=== PATIENT | male | born 1980 | race Caucasian/White ===

== ENCOUNTER 2021-04-07 14:53 | Outpatient (CLI) | payer MEDICAID, SELFPAY ==
--- NOTE | 2021-04-07 14:45 | RT.EKG_ITS ---
APPROVED REPORT Exam: Resting ECG Reason for Exam: chest pain Patient Location: O HR:62 bpm ECG Measurements Heart Rate 62 AXIS OH 144 P 61 QRSd 88 QRS 39 QT 378 T 63 QTc 384 Conclusion Sinus rhythm...normal P axis, V-rate 60- 99 ST elev, probable normal early repol pattern...ST elevation, age<55 Normal Electrocardiogram
== END 2021-04-07 14:54 | disposition home or self-care (01) ==
PROVIDERS: PCP Family Medicine; Visit Provider Family Medicine
DX: R07.9 Chest pain, unspecified (principal)
CPT/HCPCS: 93010

== ENCOUNTER 2021-04-07 18:50 | Outpatient (REF) | payer MEDICAID, SELFPAY ==
[2021-04-07 19:06] LABS: HCT 42.7 % (40.0-50.0); HGB 14.3 g/dL (13.5-17.5); MCH 31.8 pg (27.0-33.0); MCHC 33.5 % (32.0-36.0); MCV 95.1 fL (80-95); MPV 9.5 fL (8.0-11.0); Platelet Count 349 10^3/uL (130-400); RBC 4.49 10^6/uL (4.36-5.78); RDW 12.8 % (11.8-14.1); RDW-SD 44.1 fL
[2021-04-07 19:34] LABS: ALT 55 U/L (16-63); AST 16 U/L (15-37); Albumin 4.3 g/dL (3.4-5.0); Alkaline Phosphatase 39 U/L (46-116); Anion Gap 9.1 mmol/L (3-11); BUN 20 mg/dL (7-18); Bilirubin, Total 0.3 mg/dL (0.2-1.0); CO2 27.9 mmol/L (21.0-32.0); CREATININE 1.3 mg/dL (0.70-1.30); Calcium 9.3 mg/dL (8.5-10.1); Calculated LDL 111 mg/dL (<100); Chloride 101 mmol/L (98-107); Cholesterol 202 mg/dL (<200); Glucose 77 mg/dL (74-106); HDL Cholesterol 82 mg/dL (40-60); Sodium 138 mmol/L (136-145); TSH (W/Ref FT4) 1.03 uIU/mL (0.36-3.74); Total Protein 7.6 g/dL (6.4-8.2); Triglyceride 48 mg/dL (<150)
[2021-04-09 10:55] LABS: Syphilis Serology (RPR) Negative (Negative)
[2021-04-09 12:05] LABS: Hepatitis C Ab w Rflx HCV PCR Negative (Negative)
[2021-04-09 12:12] LABS: HIV-1/2 Ag & Ab Screen Negative (Negative)
[2021-04-09 14:57] LABS: Hepatitis B Surface Ag Negative (Negative)
[2021-04-09 15:24] LABS: GC Result Negative (Negative)
[2021-04-09 15:34] LABS: Chlamydia Result Positive (Negative)
== END 2021-04-07 18:51 | disposition home or self-care (01) ==
LOC: LBN 18:50
PROVIDERS: PCP Family Medicine; Visit Provider Family Medicine
DX: I10 Essential (primary) hypertension (principal); R07.9 Chest pain, unspecified; R53.83 Other fatigue; Z11.3 Encounter for screening for infections with a predominantly sexual mode of transmission; Z11.4 Encounter for screening for human immunodeficiency virus [HIV]; Z11.59 Encounter for screening for other viral diseases
CPT/HCPCS: 80053; 80061; 85027; 86803; 87340; 87389; 87491; 87591; 84443; 86592

== ENCOUNTER 2021-04-13 00:07 | Outpatient (CLI) | payer MEDICAID, SELFPAY ==
--- NOTE | 2021-04-13 08:00 | ETT_ITS ---
APPROVED REPORT Exam: Exercise Treadmill Patient Location: Out-Patient Room/Bed: Stress Nurse: Deidre Bryant RN Ordering Provider:ROSI SORTO, Contact Number: [phone] BMI: 21.52 Baseline Rhythm: Sinus Rhythm Comment: Diffuse ST elevations Indications: Chest pain Medical History Medical History: Hypertension, hyperlipidemia, heroine use 2016 Cardiac Medications: Lisinopril, amlodipine Allergies: NKA Cardiac Risk Factors: Hypertension, hyperlipidemia, smoker (former) Previous Cardiac Procedures: None Pretest Chest Pain Characteristics: None Exercise History: Indeterminate Physical Disabilities: None Lung Sounds: Clear to auscultation Heart Sounds: Regular Stress Test Details Test: , Exercise stress testing was performed using a Dorian protocol. Rest Stress HR Resting HR Supine: 65 bpm Max Heart Rate (APMHR): 178 bpm Resting HR Standin bpm Target HR (85% APMHR): 151 bpm Max HR Achieved: 169 bpm % of APMHR: 94 Recovery HR: 99 bpm HR response to stress: Normal HR response to stress BP Resting BP Supine: 138/78 mmHg Resting BP Standin/80 mmHg Max BP: 178/80 mmHg Recovery BP: 124/64 mmHg BP response to stress: Normal blood pressure response to stress. ECG Resting ECG: Sinus Rhythm Ectopy: None Comment: Diffuse ST elevations Stress ECG: Sinus Tachycardia ST Change: No significant ST segment changes noted Arrhythmia: Rare PVCs and couplet towards end of exercise Recovery ECG: Sinus Rhythm Recovery ST Change: No significant ST segment changes noted Recovery Arrhythmia: None Clinical Reason for Termination: Fatigue Stress Symptoms: General Fatigue, Chest pain, Dyspnea Exercise duration: 14 min47 sec Highest Stage Reached: Stage 5: 5.0 mph at 18% grade. Exercise capacity: 14.86 METs Rodriguez Treadmill Score: 9.7 Rate Pressure Product: [id number] Stress ECG Conclusion 1. Resting electrocardiogram was within normal limits 2. Patient exercised on the Dorian protocol and completed a workload of 14.86 METS 3. Normal heart rate and blood pressure response to exercise. The patient achieved 94% of predicted heart rate for age 4. Electrocardiographically there was no evidence of myocardial ischemia 5. Rare PVCs were noted Rodriguez Treadmill Score is 9.7 which is Low risk. Stress Test Summary STAGE Time (mins) Speed (mph) Grade (%) HR BP SYMPTOMS METS Supine 65 138/78 Standing 75 138/80 SpO2 97% 1 3 1.7 10 102 140/82 Mild SOB, SpO2 97% 4.6 2 6 2.5 12 119 152/82 SpO2 96% 7 3 9 3.4 14 130 154/82 SpO2 95% 10.2 4 12 4.2 16 156 162/86 SpO2 94% 12.9 5 15 5.0 18 169 Chest tightness 4/10, Moderate SOB, SpO2 94% 17.2 1 min recovery 146 166/84 Chest tightness resolved, SOB mild, SpO2 95% 3 min recovery 120 178/80 SOB resolved, SpO2 95% 6 min recovery 104 134/64 SpO2 95% 9 min recovery 99 124/64 SpO2 96% During last stage of exercise, pt reported feeling 4/10 chest tightness w/ moderate SOB. Stated chest tightness resolved immediately w/ cesssation of exercise. SOB resolved by minute 6 of recovery.
== END 2021-04-13 00:27 ==
PROVIDERS: PCP Family Medicine; Visit Provider Family Medicine
DX: R07.9 Chest pain, unspecified (principal); I10 Essential (primary) hypertension; E78.5 Hyperlipidemia, unspecified; Z87.891 Personal history of nicotine dependence
CPT/HCPCS: 93017

== ENCOUNTER 2021-05-21 13:48 | Outpatient (CLI) | payer MEDICAID, SELFPAY ==
--- NOTE | 2021-05-21 13:45 | RT.EKG_ITS ---
APPROVED REPORT Exam: Resting ECG Reason for Exam: chest pain Patient Location: O HR:84 bpm ECG Measurements Heart Rate 84 AXIS MA 142 P 67 QRSd 87 QRS 36 QT 353 T 61 QTc 418 Conclusion Sinus rhythm...normal P axis, V-rate 50- 99 Normal Electrocardiogram
== END 2021-05-21 13:49 | disposition home or self-care (01) ==
LOC: DI.CARD 13:49
PROVIDERS: PCP Family Medicine; Visit Provider Internal Medicine Cardiovascular Disease
DX: R07.89 Other chest pain (principal)
CPT/HCPCS: 93010

== ENCOUNTER 2021-09-29 12:51 | Day surgery (SDC) | payer MEDICAID, SELFPAY ==
--- NOTE | 2021-09-29 07:08 | W.COLOREPORT ---
Colonoscopy Report Date of procedure: 09/29/21 Pre-op diagnosis general: Rectal bleeding Post-op diagnosis procedure note: other (internal hemorrhoids and mild diverticulosis) Procedure: Colonoscopy Internal hemorrhoid banding Surgeon: Tere Juarez Anesthesia Type: General:No Airway Estimated blood loss (mL): 2 Pathology: none sent Complications: None Disposition: same day Indications: Mr. Sousa is a pleasant 41-year-old gentleman with over a year of intermittent rectal bleeding which sometimes can be quite a bit.? He denies any nausea, vomiting, abdominal pain, melena, dyspepsia.? He has no family history of colon cancer that he is aware of.? He has not lost any weight.? Differential includes internal hemorrhoids, polyps, diverticulosis or mass.? He is close to the age where we would start doing colonoscopies anyway and with his change in bowel habits and his intermittent bleeding I did recommend going ahead with a colonoscopy.? We reviewed the colonoscopy procedure as well as the risks and benefits.? We also went over the prep in detail. Risks, benefits and complications have been reviewed. Complications include but are not limited to bleeding, pain, perforation, missed small lesion/polyp, sore throat, aspiration and adverse reaction to the medications. Questions were entertained and answered to their satisfaction and they wished to proceed. No guarantees were given or implied. Proceed with colonoscopy under sedation Prep: Miralax/Dulcolax Retraction Time: >6 minutes Procedure Description: After informed consent was obtained the patient was taken to the procedure room and placed in a left decubitous position. Monitors were applied and a time out was done. The patients name, date of , procedure, allergies to medications and metal in their body was reviewed. The patient was then sedated. Once sedated and comfortable a rectal exam was done. External exam was normal. Internal exam revealed a normal sphincter tone and no palpable masses. The prostate felt normal. The scope was then introduced and retro-flexed. Grade 2 internal hemorrhoids were identified on retro-flexion. No polyps or masses were identified on retro-flexion. The scope was then advanced to the cecum without difficulty. The ileocecal vlave and appendiceal orifice were identified. The prep was adequate. The scope was then slowly retracted over >6 minutes back into the rectum. There were no polyps. There was mild sigmoid diverticulosis noted. The scope was removed. A lighted anoscope was then inserted gently and using a head loft worker with suction 3 Grade 2 internal hemorhroids were banded. The patient was woken up and taken back to Same day surgery in stable condition. The patient tolerated the procedure well and there were no immediate complications. Follow up: The patient should follow up in 10 years unless they develop changes in bowel habits or other new gastrointestinal complaints.
--- NOTE | 2021-09-29 07:09 | W.PM.DSUDISC ---
Discharge Plan Disposition Patient Disposition: HOME Condition: Good Discharge Details Reason For Visit: Colonoscopy Attending Provider: Tere Juarez Primary Care Provider: Mike Cross Home Meds and New Rx's Prescriptions: Continued lisinopril 20 mg tablet 20 mg PO DAILY Qty: 90 3RF Discontinued bisacodyl [Dulcolax (bisacodyl)] 5 mg tablet,delayed release (DR/EC) 5 mg PO ONCE Qty: 4 0RF Rx Instructions: Take according to provider's instructions for colonoscopy prep. polyethylene glycol 3350 17 gram/dose powder 17 g PO ONCE Qty: 238 0RF Label Comments: Pt states half inch left in the bottle, didn't quite make it.HE Rx Instructions: To be taken as directed by prescriber's office for colonoscopy prep. Discharge Instructions Instructions: Diverticulosis (DC), Hemorrhoids (DC), Rubber Band Ligation (DC) Additional Instructions: Findings: mild diverticulosis internal hemorrhoids Follow up: 10 years Please call if you develop: fevers >101.5 Nausea or Vomiting Abdominal pain that is not transient Rectal bleeding that is more then a tbsp A hard abdomen and inability to pass gas DAY SURGERY UNIT POST ENDOSCOPY INSTRUCTIONS Instructions for everyone who is given Anesthesia: For your safety, please do the following for the next 24 Hours: a. Do not drive or operate dangerous equipment b. Do not drink alcohol beverages or use any recreational drugs for the first 24 hours or while taking pain medications. The medications in your body may have a reaction that can be dangerous. c. Do not make any important decisions or sign any important papers 1. Generally there are no restrictions on your activity after a day or so has gone by, but you may feel a bit fatigued for a few days. 2. After you arrive home you may have a light meal and return to a normal diet as you can tolerate it without feeling sick to your stomach. 3. After surgery, you may feel pain or discomfort. This should be only transient, but if it persists please contact your doctor. 4. If there are any questions regarding the findings of your procedure, please feel free to contact your doctor. 6. If you are unable to contact your doctor with a problem, contact the hospital at [phone]. 7. Continue all your regular medications unless directed otherwise. I understand the above instructions and have no questions. Signature of Patient or Responsible Adult Escort Date/Time Name of Responsible Adult Escort Signature of Nurse Date/Time Activity:: Activity as Tolerated Diet:: As Tolerated Discharge Orders Discharge Orders: Discharge Order (Routine); Ordered 09/29/21 Ordered By: Tere Juarez
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
[2021-09-29] MEDS: Lactated Ringers 1,000 ML 80 ML IV (13:38)
[2021-09-29 13:39] VITALS: BMI 21.3
[2021-09-29 14:23] VITALS: BP 131/89; PULSE 67; RESP 17; TEMP 36.1; O2SAT 97
--- NOTE | 2021-09-29 14:29 | W.ANESPOSTOP ---
Postoperative Evaluation Date, Time and Location Date Performed: 09/29/21 Time Performed: 14:29 Patient Location: Day Surgery Unit Vital Signs Most Recent Manually Entered Vital Signs: Adult Blood Pressure: 124/79 Heart Rate: 79 Respirations: 12 Oxygen Saturation (%): 98 Temperature (C): 36.1 C Pain Score (0-10 Scale): 0 Pain Score Most Recent Pain Score: Most Recent Pain Score Pain Level 0 09/29/21 13:14 Assessment Mental Status: Awake (Alert & Oriented to Patient Baseline) Airway and Respiratory Function: Patent airway with normal (patient baseline) respiratory exam Cardiovascular Function: Hemodynamically Stable Hydration Status: Adequately Hydrated Nausea & Vomiting: No Nausea or Vomiting Pain: Pt. Denies Any Pain Peripheral Nerve Block: Patient did not receive a nerve block
[2021-09-29 14:45] VITALS: BP 124/79; PULSE 79; RESP 12; TEMPC 36.1; O2SAT 98
[2021-09-29 14:53] VITALS: BP 165/100; PULSE 56; RESP 18; TEMP 36.3; O2SAT 100
== END 2021-09-29 15:50 | disposition home or self-care (01) ==
PROVIDERS: PCP Nurse Practitioner Family; Visit Provider Surgery
PROC: 0DJD8ZZ Inspection of Lower Intestinal Tract, Via Natural or Artificial Opening Endoscopic (ICD-10-PCS; CPT 45378; principal; 2021-09-29 15:15)
PROC: (CPT 46221; 2021-09-29 15:15)
DX: K62.5 Hemorrhage of anus and rectum (principal); K57.30 Diverticulosis of large intestine without perforation or abscess without bleeding; K64.1 Second degree hemorrhoids
CPT/HCPCS: 46221; 45378